=== PATIENT | female | born 1995 | race Two or more races ===

== ENCOUNTER 2017-08-04 12:49 | Emergency (ER) | payer SELFPAY ==
[~2017-08-04] VITALS: Ht 165.1 cm; Wt 95.3 kg
[2017-08-04] MEDS ORDERED: KETOROLAC TROMETH 60MG/2ML VIAL IM ONE (14:45)
[2017-08-04] MEDS ORDERED: METHOCARBAMOL 500 MG TAB PO ONE (14:45)
[2017-08-04 15:15] VITALS: BP 130/86
== END 2017-08-04 15:48 | disposition home or self-care (01) ==
LOC: ER 12:49
DX: M54.5 Low back pain (principal)
CPT/HCPCS: 72110; 81025; 96372; 99284; J1885